=== PATIENT | male | born 1945 | race Caucasian/White ===

== ENCOUNTER 2018-01-12 05:58 | Emergency (ER) | payer MEDICARE, BC ==
[2018-01-12] MEDS ORDERED: Amoxicillin/Potassium Clav 500 MG TAB ONE (06:16)
[2018-01-12] MEDS ORDERED: predniSONE 20 MG TAB ONE (06:16)
== END 2018-01-12 06:25 | disposition home or self-care (01) ==
LOC: MADERS 05:58
DX: J02.9 Acute pharyngitis, unspecified (principal); I10 Essential (primary) hypertension; E11.649 Type 2 diabetes mellitus with hypoglycemia without coma
CPT/HCPCS: 99282; J7506

== ENCOUNTER 2018-04-30 09:23 | Emergency (ER) | payer MEDICARE, BC ==
--- NOTE | 2018-04-30 10:11 | RAD ---
CHEST 2 VIEWS: HISTORY: Cough. COMPARISON: 12/02/2015. FINDINGS: Normal cardiac silhouette. The pulmonary vessels are slightly prominent. Costophrenic angles are cl ear. Increased interstitial opacities may be due to edema or infiltrate. There is no pneumothorax o r osseous abnormality. IMPRESSION: Pulmonary vascular prominence and interstitial prominence due to edema or infiltrate. Continued surv eillance is recommended. POS: [facility]
== END 2018-04-30 10:15 | disposition home or self-care (01) ==
LOC: MADERS 09:23
DX: J20.9 Acute bronchitis, unspecified (principal); E11.9 Type 2 diabetes mellitus without complications; I10 Essential (primary) hypertension; N40.0 Benign prostatic hyperplasia without lower urinary tract symptoms; Z79.899 Other long term (current) drug therapy; Z79.82 Long term (current) use of aspirin; Z79.84 Long term (current) use of oral hypoglycemic drugs
CPT/HCPCS: 71046